=== PATIENT | female | born 1975 | race Caucasian/White ===

== ENCOUNTER → 2019-02-25 | Outpatient (CLI) | payer BC ==
--- NOTE | 2019-02-25 16:16 | Diagnostic Imaging Report ---
Limited soft tissue ultrasound of the left back and left arm. History: Subcutaneous nodules. Comparison: None. Technique/findings: In the area of clinical concern in the left lower back and left posterior arm, there are multiple well-circumscribed, echogenic subcutaneous nodules, measuring up to 1.3 cm. Ultrasound of the right posterior arm for comparison demonstrated a similar subcutaneous nodule, measuring up to 0.9 cm. Ultrasound of the right lower back for comparison was unremarkable. IMPRESSION: Sonographic findings consistent with multiple subcutaneous lipomas in the left lower back and bilateral posterior arms. Signed by: Dr. Anam Enriquez MD on 02/25/2019 4:12 PM
== END ==
LOC: US 15:01
PROVIDERS: ATTEND Family Medicine
DX: R22.9 Localized swelling, mass and lump, unspecified (principal)
CPT/HCPCS: 76882